=== PATIENT | female | born 1955 | race Caucasian/White ===

== ENCOUNTER → 2016-06-10 | Outpatient (CLI) | payer OTHER ==
[~2016-06-10] MED LIST: CELEBREX PO; FLEXERIL PO; GLUCOTROL XL PO; IBUPROFEN800 MG PO; KLOR-CON PO; LASIX PO; LORTAB 10/500 T1 TAB PO; MEDROL4 MG/DOSE-; MEDROL4 MG/DOSE- PO; METFORMIN PO; ZESTORETIC 20/11 TAB PO
== END | disposition home or self-care (01) ==
LOC: CECH 09:08
DX: R06.02 Shortness of breath (principal); J44.9 Chronic obstructive pulmonary disease, unspecified; R93.8 Abnormal findings on diagnostic imaging of other specified body structures; I08.1 Rheumatic disorders of both mitral and tricuspid valves
CPT/HCPCS: 93306

== ENCOUNTER → 2016-07-03 | Outpatient (CLI) | payer OTHER ==
--- NOTE | ~2016-07-03 | CR59 ---
[facility] A Service of [facility] & [facility] RADIOLOGY TEXT RESULTS PATIENT: KARLEY SWANSON LOCATION: [facility] : 59 UNIT #: [id number] AGE: [address]: Princess Santiago APRN SEX: F ORDER DR: [id number] [facility] [address] [place], [place] [address] [id number] O MR#: [id number] Acc #: [id number] NAME: KARLEY SWANSON : 1955 SEX: F STUDY DATE/TIME: 07/03/2016 14:15 UNIT: [facility] ROOM: STUDY DESCRIPTION: CR Cervical Spine 5 View W Fle Attending Physician: Princess Santiago A.P.R.N. Referring Physician: Princess Santiago A.P.R.N. Ordering Physician: Princess Santiago A.P.R.N. Primary Care Physician: Lucy Morrow A.P.R.N. MEDICAL IMAGING REPORT This report is preliminary unless electronic signature is present EXAM C-spine with flexion/extension views HISTORY 61-year-old female neck pain upper back and lower back pain since 2000 injured back and neck lifting pushing and pulling at work. FINDINGS AP lateral and open mouth odontoid views submitted as well as foraminal oblique views and flexion/extension lateral views. Examination demonstrates multilevel facet arthropathy. Multilevel degenerative disc disease. Facet changes most severe in the upper cervical spine C2-3, C3-4, C4-5 and degenerative disc changes most pronounced C5-6, C6-7. Mild arthritic changes seen at the atlantoaxial joint. No abnormal motion noted on flexion/extension views. Prevertebral soft tissues appear normal. Foraminal obliques demonstrates left C3-4, C4-5, C5-6 and C6-7 foraminal stenosis due to uncovertebral osteophytes. The right-sided foraminal obliques are limited and therefore foraminal narrowing cannot be assessed. The upper thorax unremarkable. The right-sided foraminal obliques are improperly positioned and therefore the foramen are not clearly profiled but the patient does demonstrate multilevel facet disease on the right as well. IMPRESSION Moderately advanced multilevel degenerative disc disease and multilevel facet arthropathy as detailed above. Posterior hypertrophic changes C5-6, C6-7 may contribute to spinal stenosis and there is clearly multilevel foraminal stenosis on the left and I suspect on the right as well though the right-sided foraminal obliques were not adequately profiled. Please see above for details. Dictated by... Yue Ferris M.D. [facility] A Service of [facility] / [facility] RADIOLOGY TEXT RESULTS PATIENT: KARLEY SWANSON LOCATION: [facility] : 59 UNIT #: [id number] AGE: [address]: Princess Santiago APRN SEX: F ORDER DR: THIS IS AN ELECTRONICALLY VERIFIED REPORT Yue Ferris M.D. at 07/04/2016 8:09 PM LISSET/hemant TD: 07/04/2016 00:51 JOB #: [id number] MEDICAL IMAGING REPORT Page 1 of 1 COPY
--- NOTE | ~2016-07-03 | CR186 ---
[facility] A Service of [facility] & [facility] RADIOLOGY TEXT RESULTS PATIENT: KARLEY SWANSON LOCATION: [facility] : 59 UNIT #: [id number] AGE: [address]: Princess Santiago APRN SEX: F ORDER DR: [id number] [facility] [address]. [place], [place] [address] [id number] O MR#: [id number] Acc #: [id number] NAME: KARLEY SWANSON : 1955 SEX: F STUDY DATE/TIME: 07/03/2016 14:22 UNIT: [facility] ROOM: STUDY DESCRIPTION: CR Lumbar Spine W Bend Min 6 V Attending Physician: Princess Santiago A.P.R.N. Referring Physician: Princess Santiago A.P.R.N. Ordering Physician: Vu GarciaREmmie Primary Care Physician: Franco SousaPJordanREmmie MEDICAL IMAGING REPORT This report is preliminary unless electronic signature is present EXAM Lumbar spine with obliques and flexion views HISTORY Complains of low back pain since 2000 getting worse. FINDINGS Multiple views of the lumbar spine demonstrates mild multilevel degenerative disc changes with endplate sclerosis, marginal hypertrophic change. No significant disc space narrowing. No spondylolysis or spondylolisthesis. There may be minimal grade 1 spondylolisthesis L4 on L5. There is lower lumbar spine facet arthropathy most pronounced L4-5, L5-S1. No spondylolysis. SI joints soft tissues unremarkable. Small amount of aortic calcification noted. IMPRESSION 1. Moderately advanced L4-5, L5-S1 facet arthropathy with a grade 1 spondylolisthesis L4 on L5. 2. Mild multilevel degenerative disc changes but no significant disc space narrowing. Dictated by... Yue Ferris M.D. THIS IS AN ELECTRONICALLY VERIFIED REPORT Yue Ferris M.D. at 07/04/2016 8:09 PM LISSET/hemant TD: 07/04/2016 01:08 JOB #: [id number] MEDICAL IMAGING REPORT Page 1 of 1 COPY
--- NOTE | ~2016-07-03 | CR242 ---
[facility] A Service of [facility] & [facility] RADIOLOGY TEXT RESULTS PATIENT: KARLEY SWANSON LOCATION: [facility] : 59 UNIT #: [id number] AGE: [address]: Princess Santiago APRN SEX: F ORDER DR: [id number] [facility] [address] [place], [place] [address] [id number] O MR#: [id number] Acc #: [id number] NAME: KARLEY SWANSON : 1955 SEX: F STUDY DATE/TIME: 07/03/2016 14:17 UNIT: [facility] ROOM: STUDY DESCRIPTION: CR Thoracic Spine 2 Views Attending Physician: Princess Santiago A.P.R.N. Referring Physician: Princess Santiago A.P.R.N. Ordering Physician: Princess Santiago A.P.R.N. Primary Care Physician: Lucy Morrow A.P.R.N. MEDICAL IMAGING REPORT This report is preliminary unless electronic signature is present EXAM Thoracic spine. HISTORY Upper back pain since 2000 slowly getting worse. FINDINGS AP lateral and cone lateral views of the thoracic spine demonstrates mild to moderate diffuse multilevel degenerative disc changes with endplate sclerosis and marginal hypertrophic change. No fractures identified. No lytic or blastic lesions. No malalignment. Pedicles and paraspinal soft tissues unremarkable. IMPRESSION Moderate diffuse multilevel degenerative disc changes thoracic spine. Dictated by... Yue Ferris M.D. THIS IS AN ELECTRONICALLY VERIFIED REPORT Yue Ferris M.D. at 07/04/2016 8:09 PM LISSET/hemant TD: 07/04/2016 01:05 JOB #: [id number] MEDICAL IMAGING REPORT Page 1 of 1 COPY
== END | disposition home or self-care (01) ==
LOC: CRAD 13:56
DX: M51.24 Other intervertebral disc displacement, thoracic region (principal); M51.17 Intervertebral disc disorders with radiculopathy, lumbosacral region; M50.322 Other cervical disc degeneration at C5-C6 level; M50.323 Other cervical disc degeneration at C6-C7 level; M12.88 Other specific arthropathies, not elsewhere classified, other specified site; M99.81 Other biomechanical lesions of cervical region; M51.34 Other intervertebral disc degeneration, thoracic region; M43.16 Spondylolisthesis, lumbar region; M51.36 Other intervertebral disc degeneration, lumbar region
CPT/HCPCS: 72052; 72070; 72114

== ENCOUNTER → 2016-08-05 | Outpatient (CLI) | payer OTHER ==
[2016-08-05 16:48] LABS: ALBUMIN SERUM 4.2 g/dL (3.5-5.0); BUN/CREATININE RATIO 13.84; CALCIUM SERUM 9.4 mg/dL (8.4-10.2); CREATININE SERUM 1.3 mg/dL (0.6-1.4); GLOM FILT RATE Estimated 44.9 mL/min (>60); PHOSPHOROUS 3.4 mg/dL (2.5-4.6); POTASSIUM 3.8 mmol/L (3.5-5.1)
== END | disposition home or self-care (01) ==
LOC: CLAB 16:08
PROVIDERS: Internal Medicine Nephrology
DX: N18.3 Chronic kidney disease, stage 3 (moderate) (principal)
CPT/HCPCS: 36415; 80069